=== PATIENT | male | born 1980 | race Caucasian/White ===

== ENCOUNTER 2022-04-26 11:56 | Inpatient (IN) | payer OTHER ==
[~2022-04-26] VITALS: Ht 170.2 cm; Wt 91.0 kg
[2022-04-26 14:50] LABS: BASOPHILS % (AUTO) 0.4 % (0.0-2.0); EOSINOPHILS % (AUTO) 0.6 % (1.0-6.0); HEMATOCRIT 41.7 % (41-53); HEMOGLOBIN 14.1 g/dL (13.5-17.5); LYMPHOCYTES # (AUTO) 1.7 K/uL (1.0-4.8); LYMPHOCYTES % (AUTO) 15.9 % (22.0-44.0); MEAN CORPUSCULAR HEMOGLOBIN 29.2 pg (26.0-34.0); MEAN CORPUSCULAR HGB CONC 33.7 G/dL (31.0-37.0); MEAN CORPUSCULAR VOLUME 87 fL (80-100); MONOCYTES # (AUTO) 0.3 K/uL (0.1-1.0); MONOCYTES % (AUTO) 2.9 % (2.0-9.0); NEUTROPHILS # (AUTO) 8.7 K/uL (1.8-7.7); NEUTROPHILS % (AUTO) 80.2 % (40.0-70.0); PLATELET COUNT (AUTO) 325 K/uL (150-450); RED BLOOD CELL COUNT(AUTO) 4.82 MIL/uL (4.50-5.90); RED CELL DISTRIBUTION WIDTH 13.8 % (11.5-14.5)
[2022-04-26 14:50] LABS: COVID AG,FIA SOURCE NASOPHARYNGEAL
[2022-04-26 14:54] LABS: ANION GAP 7 mmol/L (8-16); CALCIUM, TOTAL 9.4 mg/dL (8.8-10.5); CARBON DIOXIDE 29 mmol/L (22-29); CHLORIDE 101 mmol/L (98-107); CREATININE 0.89 mg/dL (0.60-1.30); GLOMERULAR FILTR. RATE CALC > 60 mL/min (>60); GLUCOSE,RANDOM 121 mg/dL (70-110); SODIUM SERUM 137 mmol/L (136-145); UREA NITROGEN, BLOOD 10 mg/dL (7-18)
[2022-04-26 15:00] LABS: ALANINE AMINOTRANSFERASE 53 U/L (12-78); ALBUMIN 4.1 g/dL (3.4-5.0); ALKALINE PHOSPHATASE 121 U/L (46-116); ASPARTATE AMINOTRANSFERASE 27 U/L (15-37); BILIRUBIN,TOTAL 0.8 mg/dL (0.1-1.0); TOTAL PROTEIN, SERUM 8.2 g/dL (6.4-8.2)
[2022-04-26] MEDS ORDERED: ONDANSETRON HCL 4 MG/2 ML VIAL IVP PRN (15:15)
[2022-04-26] MEDS: ACETAMINOPHEN 325 MG TABLET PO PRN ×2 (15:23→20:20)
[2022-04-26] MEDS ORDERED: DICYCLOMINE HCL 10 MG CAPSULE PO PRN (15:45)
[2022-04-26] MEDS ORDERED: METOCLOPRAMIDE HCL 5 MG/ML 2 ML VIAL IVP PRN (15:45)
[2022-04-26] MEDS ORDERED: ACETAMINOPHEN/CODEINE 300-15 MG TABLET PO PRN (15:45)
[2022-04-26] MEDS ORDERED: SODIUM CHLORIDE 0.9% 1,000 ML IV ONE (15:45)
[2022-04-26] MEDS ORDERED: LOPERAMIDE HCL 2 MG CAPSULE PO PRN (15:45)
[2022-04-26 16:33] VITALS: BP 137/79
[2022-04-26 19:04] VITALS: BP 144/95
[2022-04-26] MEDS: TEMAZEPAM 15 MG CAPSULE PO SCH (20:20)
[2022-04-26 20:32] LABS: AMPHET/METH SCREEN,URINE POSITIVE (NEGATIVE); BARBITURATE SCREEN, URINE NEGATIVE (NEGATIVE); BENZODIAZEPINES SCREEN,URINE NEGATIVE (NEGATIVE); CANNABINOID SCREEN,URINE NEGATIVE (NEGATIVE); COCAINE SCREEN,URINE NEGATIVE (NEGATIVE); METHADONE SCREEN, URINE NEGATIVE (NEGATIVE); OPIATE SCREEN,URINE NEGATIVE (NEGATIVE)
[2022-04-26 20:45] LABS: PHENCYCLIDINE SCREEN,URINE NEGATIVE (NEGATIVE)
[2022-04-26] MEDS ORDERED: TEMAZEPAM 15 MG CAPSULE PO SCH (21:00)
[2022-04-26] MEDS: ACETAMINOPHEN/CODEINE 300-15 MG TABLET PO PRN (22:42)
[2022-04-27] MEDS: LORazepam 1 MG TABLET PO PRN ×3 (02:39→23:45)
[2022-04-27 04:44] VITALS: BP 132/82
[2022-04-27 08:20] VITALS: BP 128/81
[2022-04-27] MEDS: ACETAMINOPHEN/CODEINE 300-15 MG TABLET PO PRN ×2 (12:18→18:26)
[2022-04-27 16:51] VITALS: BP 128/76
[2022-04-27] MEDS: TEMAZEPAM 15 MG CAPSULE PO SCH (20:07)
[2022-04-27 20:10] VITALS: BP 131/76
[2022-04-28 04:53] VITALS: BP 114/88
[2022-04-28] MEDS: ACETAMINOPHEN/CODEINE 300-15 MG TABLET PO PRN ×2 (06:36→13:34)
[2022-04-28 08:11] VITALS: BP 126/66
[2022-04-28] MEDS: NICOTINE 14 MG/24 HOUR PATCH TD SCH (13:37)
[2022-04-28 16:18] VITALS: BP 123/79
[2022-04-28] MEDS ORDERED: ZOLPIDEM TARTRATE 10 MG TABLET PO PRN (17:15)
[2022-04-28] MEDS: HydrOXYzine HCL 50 MG TABLET PO PRN ×2 (18:00→23:23)
[2022-04-28 20:49] VITALS: BP 139/85
[2022-04-29 05:02] VITALS: BP 127/72
[2022-04-29] MEDS: ACETAMINOPHEN/CODEINE 300-15 MG TABLET PO PRN (06:59)
[2022-04-29 07:31] VITALS: BP 130/74
[2022-04-29] MEDS: NICOTINE 14 MG/24 HOUR PATCH TD SCH (08:45)
== END 2022-04-29 12:10 | DRG 641 ==
LOC: EMS 11:56 → 6S 15:41 → EMS 16:01
PROVIDERS: ADMIT Internal Medicine; ATTEND Internal Medicine
DX: R73.9 Hyperglycemia, unspecified (principal); F11.20 Opioid dependence, uncomplicated; F15.10 Other stimulant abuse, uncomplicated; F17.210 Nicotine dependence, cigarettes, uncomplicated; Z20.822 Contact with and (suspected) exposure to COVID-19; F29 Unspecified psychosis not due to a substance or known physiological condition; Z90.49 Acquired absence of other specified parts of digestive tract
CPT/HCPCS: 80053; 80307; 85025; 99285; J7030